=== PATIENT | male | born 1980 | race Caucasian/White ===

== ENCOUNTER 2018-03-01 11:29 | Emergency (ER) | payer OTHER, MEDICAID, SELFPAY ==
[2018-03-01 11:30] VITALS: BP 144/86; PULSE 63; RESP 14; TEMP 36.1; O2SAT 100; BMI 32.5
--- NOTE | 2018-03-01 12:18 | ED.MALEGU ---
HPI - Male Genitourinary <LORI Nix - Last Filed: 03/01/18 15:02> General Chief complaint: Urogenital-Male Stated complaint: blood in urine Time Seen by Provider: 03/01/18 12:05 Source: patient and family Mode of arrival: ambulatory Limitations: no limitations History of Present Illness HPI Narrative: Patient is a healthy 37-year-old male who presents with chief complaint of left-sided flank pain radiating down to his inguinal area on the left side as well as hematuria last night. States that hematuria was a few drops of red blood. He states that the Flank pain comes in waves with a max of 5/10. He denies any other abdominal pain, fever, nausea vomiting or diarrhea. He denies any penile discharge. Denies any sexually transmitted infection risk and declines STD testing. He does complain of a left testicle ache but denies swelling or severe pain. He states his left testicle ache is 2 to 3/10. He complains of dysuria, but denies any frequency or urgency. he states last night he had to push to urinate and then he was able to urinate and then had a few drops of blood. Related Data Home Medications Medication Instructions Recorded Confirmed albuterol sulfate [ProAir HFA] 1 puff INHALATION PRN PRN 03/01/18 03/01/18 clonidine HCl 1 tab PO BEDTIME 03/01/18 03/01/18 lisinopril 10 mg PO DAILY 03/01/18 03/01/18 Allergies Allergy/AdvReac Type Severity Reaction Status Date / Time No Known Drug Allergies Allergy Verified 03/01/18 11:50 Review of Systems <LORI Nix - Last Filed: 03/01/18 15:02> Review of Systems GENERAL: Denies chills, fatigue, malaise, fever, sweats. HEENT: Denies sinus pain, ear pain, sore throat, difficulty swallowing, dizziness. RESPIRATORY: Denies dyspnea, cough, wheezing, hemoptysis, sputum. CARDIOVASCULAR: Denies chest pain, palpitations, orthopnea, edema, GASTROINTESTINAL: Denies nausea, vomiting, abdominal pain, diarrhea, constipation, melena. : See HPI MUSCULOSKELETAL: denies weakness, joint pain, or bony pain SKIN: Denies rash, skin lesions, or other NEUROLOGIC: Denies weakness, headache, numbness, change in speech, confusion, seizures, incoordination. PSYCHIATRIC: No concerning psychosocial issues. 12 point review of systems is negative except for those stated above Exam <SARAH NixBC - Last Filed: 03/01/18 15:02> Narrative Exam Narrative: GENERAL: This is a well-nourished, well-developed patient, appears uncomfortable HEAD: Atraumatic. Normocephalic. No temporal or scalp tenderness. EYES: Pupils equal round and reactive. Extraocular motions intact. No scleral icterus. No injection or drainage. ENT: Nose without bleeding, purulent drainage or septal hematoma. Throat without erythema, tonsillar hypertrophy or exudate. Uvula midline. Airway patent. NECK: Trachea midline. No JVD or lymphadenopathy. Supple, nontender, no meningeal signs. CARDIOVASCULAR: Regular rate and rhythm without murmurs, gallops, or rubs. : RESPIRATORY: Clear to auscultation. Breath sounds equal bilaterally. No wheezes, rales, or rhonchi. No cough on exam. No increased respiratory effort. GASTROINTESTINAL: Abdomen soft, diffuse tenderness left lower quadrant, nondistended. No hepato-splenomegaly, or palpable masses. No guarding. CVA tenderness left side. Active bowel sounds all 4 quadrants. EXTREMITIES: No clubbing, cyanosis, or edema. No joint tenderness, effusion, or edema noted. BACK: Nontender without deformity or crepitance. No flank tenderness. NEURO: AOx3. SKIN: No rash or erythema. : No palpable hernias. Cremasteric reflexes intact bilaterally. No pain to palpation of testicles. No obvious rashes, lacerations, erythema or abrasions. No swelling of testicles noted. 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 Initial Vital Signs Initial Vital Signs: Vital Signs Temperature 97.0 F L 03/01/18 11:30 Pulse Rate 63 03/01/18 11:30 Respiratory Rate 14 03/01/18 11:30 Blood Pressure 144/86 H 03/01/18 11:30 Pulse Oximetry 100 03/01/18 11:30 <Lexa Hemphill MD - Last Filed: 03/01/18 18:27> Initial Vital Signs Initial Vital Signs: Vital Signs Temperature 97.0 F L 03/01/18 11:30 Pulse Rate 63 03/01/18 11:30 Respiratory Rate 14 03/01/18 11:30 Blood Pressure 144/86 H 03/01/18 11:30 Pulse Oximetry 100 03/01/18 11:30 Course <LORI Nix - Last Filed: 03/01/18 15:02> Course Narrative: I checked on the patient several times throughout his stay in the emergency department. Orders Ordered: ED Orders 03/01/18 12:22 CT kidney ureter bladder (KUB) Stat Discontinued Medications Ketorolac Tromethamine (Toradol) 60 mg IM NOW ONE Stop: 03/01/18 13:54 Last Admin: 03/01/18 13:57 Dose: 60 mg Vital Signs - 8 hr 03/01/18 11:30 03/01/18 12:30 03/01/18 13:38 Temperature 97.0 F L Pulse Rate 63 58 L Respiratory Rate 14 14 Blood Pressure 144/86 H Blood Pressure [Right Arm] 125/72 129/77 Pulse Oximetry 100 99 <Lexa Hemphill MD - Last Filed: 03/01/18 18:27> Orders Ordered: ED Orders 03/01/18 12:22 CT kidney ureter bladder (KUB) Stat Discontinued Medications Ketorolac Tromethamine (Toradol) 60 mg IM NOW ONE Stop: 03/01/18 13:54 Last Admin: 03/01/18 13:57 Dose: 60 mg Vital Signs - 8 hr 03/01/18 11:30 03/01/18 12:30 03/01/18 13:38 Temperature 97.0 F L Pulse Rate 63 58 L Respiratory Rate 14 14 Blood Pressure 144/86 H Blood Pressure [Right Arm] 125/72 129/77 Pulse Oximetry 100 99 MDM - Male Genitourinary <LORI Nix - Last Filed: 03/01/18 15:02> Lab Data Urine Dip Bedside Urine Glucose Negative Bedside Urine Bilirubin - Negative Bedside Urine Ketone - Negative Urine Specific [place] 1.025 Bedside Urine Occult Blood - Negative Bedside Urine pH 6.0 Bedside Urine Protein - Negative Bedside Urine Urobilinogen - Negative Bedside Urine Nitrite - Negative Bedside Urine Leukocytes - Negative Esterase Imaging Data CT scan - abdomen: Radiologist's impression: [address] [address] [address] Scan Report Signed Patient: Iban Orourke#: [id number] : 1980Acct:[id number] Age/Sex: 37 / MDate of Service: 03/01/18 Loc: ED Accession Number: [id number] Procedure: CT kidney ureter bladder (KUB) Ordering Provider: Yanni Rodríguez CIVIL CELEBRANT- PROCEDURE: CT KIDNEY URETER BLADDER (KUB) INDICATIONS: left flank pain, blood in urine TECHNIQUE: Noncontrast 5 mm thick sections acquired from the diaphragms to the symphysis. 5 mm thick coronal and sagittal reformats were then performed. For radiation dose reduction, the following was used: automated exposure control, adjustment of mA and/or kV according to patient size. COMPARISON: None. FINDINGS: Image quality: Excellent. Lung bases: Lung bases are clear. Heart size is normal. Urinary system: Both kidneys are normal in size. No kidney stones. No hydronephrosis or perinephric fat stranding. Both ureters appear non-dilated throughout their expected courses. Bladder wall thickness is normal; no calcified bladder stones. Other solid organs: Liver is normal in size. Gallbladder is within normal limits. Pancreas is normal in contours. Spleen is normal in size. No adrenal nodules. Peritoneum and bowel: Unenhanced bowel loops demonstrate normal wall thickness and caliber. Few scattered diverticuli noted in the colon without evidence of diverticulitis. No free air. Trace free fluid in the lower pelvis of uncertain etiology. The appendix is normal. Nodes and vessels: No retroperitoneal or mesenteric adenopathy by size criteria. Aorta and inferior vena cava are normal in caliber. Abdominal wall: No ventral hernias. Pelvis: No free pelvic fluid. No inguinal hernias or adenopathy. Bones: No suspicious bony lesions. No vertebral body compression fractures. 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 IMPRESSION: 1. No renal stone or hydronephrosis. 2. Trace free fluid in the lower pelvis of uncertain etiology. 3. Colonic diverticulosis without evidence of diverticulitis. 4. Trace L5-S1 isthmic spondylolisthesis. Dictated by: Dominga Reid MD, PhD on 03/01/2018 at 12:07 Approved by: Dominga Reid MD, PhD on 03/01/2018 at 12:12 [facility] Narrative Medical decision making narrative: Patient presents with flank pain and concern about a kidney stone. He states he thinks he passed one last night. He has stable vital signs, appears well and nontoxic and has a overall benign exam. I discussed at length return precautions of fever, severe abdominal pain. Discussed further workup including labs, scrotal ultrasound but patient and are okay to discharge at this point time and Come back if necessary. I discussed at length negative urinalysis, no kidney stone on scan an incidental trace free-fluid finding. Discussed at length return precautions of fever, severe abdominal pain or acute concerns. No questions or concerns upon discharge. <Lexa Hemphill MD - Last Filed: 03/01/18 18:27> Lab Data Urine Dip Bedside Urine Glucose Negative Bedside Urine Bilirubin - Negative Bedside Urine Ketone - Negative Urine Specific Marion 1.025 Bedside Urine Occult Blood - Negative Bedside Urine pH 6.0 Bedside Urine Protein - Negative Bedside Urine Urobilinogen - Negative Bedside Urine Nitrite - Negative Bedside Urine Leukocytes - Negative Esterase Discharge Plan Departure Patient Disposition: Home Clinical Impression: Acute left flank pain Discharge Date/Time: 03/01/18 14:58 Interventions: ED Discharge Assessment Last Done: 03/01/18 14:20 Instructions: DI for Flank Pain Activity Restrictions/Additional Instructions: Your urine has no signs of infection. Your CT scan shows no sign of kidney stone. Please come back to emergency department if any severe fever, severe pain or any acute concerns. Please do not take ibuprofen for 6-8 hours after that Toradol injection. Please follow-up with your primary care provider. Prescriptions: No Action clonidine HCl 0.3 mg tablet 1 tab PO BEDTIME RF: 0 lisinopril 10 mg tablet 10 mg PO DAILY RF: 0 albuterol sulfate [ProAir HFA] 90 mcg/actuation HFA aerosol inhaler 1 puff Inhalation PRN PRN (Reason: Shortness Of Breath) RF: 0 <Lexa Hemphill MD - Last Filed: 03/01/18 18:27> Cosign ED Attending Cosignature Attestation: I was present in the ER at the time of this patient's care. I was available for verbal consultation or to see the patient directly if requested. I agree with the assessment and treatment plan.
--- NOTE | 2018-03-01 12:21 | ED_ITS ---
HPI - Male Genitourinary <LORI Nix - Last Filed: 03/01/18 15:02> General Chief complaint: Urogenital-Male Stated complaint: blood in urine Time Seen by Provider: 03/01/18 12:05 Source: patient and family Mode of arrival: ambulatory Limitations: no limitations History of Present Illness HPI Narrative: Patient is a healthy 37-year-old male who presents with chief complaint of left-sided flank pain radiating down to his inguinal area on the left side as well as hematuria last night. States that hematuria was a few drops of red blood. He states that the Flank pain comes in waves with a max of 5/10. He denies any other abdominal pain, fever, nausea vomiting or diarrhea. He denies any penile discharge. Denies any sexually transmitted infection risk and declines STD testing. He does complain of a left testicle ache but denies swelling or severe pain. He states his left testicle ache is 2 to 3/10. He complains of dysuria, but denies any frequency or urgency. he states last night he had to push to urinate and then he was able to urinate and then had a few drops of blood. Related Data Home Medications Medication Instructions Recorded Confirmed albuterol sulfate [ProAir HFA] 1 puff INHALATION PRN PRN 03/01/18 03/01/18 clonidine HCl 1 tab PO BEDTIME 03/01/18 03/01/18 lisinopril 10 mg PO DAILY 03/01/18 03/01/18 Allergies Allergy/AdvReac Type Severity Reaction Status Date / Time No Known Drug Allergies Allergy Verified 03/01/18 11:50 Review of Systems <LORI Nix - Last Filed: 03/01/18 15:02> Review of Systems GENERAL: Denies chills, fatigue, malaise, fever, sweats. HEENT: Denies sinus pain, ear pain, sore throat, difficulty swallowing, dizziness. RESPIRATORY: Denies dyspnea, cough, wheezing, hemoptysis, sputum. CARDIOVASCULAR: Denies chest pain, palpitations, orthopnea, edema, GASTROINTESTINAL: Denies nausea, vomiting, abdominal pain, diarrhea, constipation, melena. : See HPI MUSCULOSKELETAL: denies weakness, joint pain, or bony pain SKIN: Denies rash, skin lesions, or other NEUROLOGIC: Denies weakness, headache, numbness, change in speech, confusion, seizures, incoordination. PSYCHIATRIC: No concerning psychosocial issues. 12 point review of systems is negative except for those stated above Exam <SARAH NixBC - Last Filed: 03/01/18 15:02> Narrative Exam Narrative: GENERAL: This is a well-nourished, well-developed patient, appears uncomfortable HEAD: Atraumatic. Normocephalic. No temporal or scalp tenderness. EYES: Pupils equal round and reactive. Extraocular motions intact. No scleral icterus. No injection or drainage. ENT: Nose without bleeding, purulent drainage or septal hematoma. Throat without erythema, tonsillar hypertrophy or exudate. Uvula midline. Airway patent. NECK: Trachea midline. No JVD or lymphadenopathy. Supple, nontender, no meningeal signs. CARDIOVASCULAR: Regular rate and rhythm without murmurs, gallops, or rubs. : RESPIRATORY: Clear to auscultation. Breath sounds equal bilaterally. No wheezes , rales, or rhonchi. No cough on exam. No increased respiratory effort. GASTROINTESTINAL: Abdomen soft, diffuse tenderness left lower quadrant, nondistended. No hepato-splenomegaly, or palpable masses. No guarding. CVA tenderness left side. Active bowel sounds all 4 quadrants. EXTREMITIES: No clubbing, cyanosis, or edema. No joint tenderness, effusion, or edema noted. BACK: Nontender without deformity or crepitance. No flank tenderness. NEURO: AOx3. SKIN: No rash or erythema. : No palpable hernias. Cremasteric reflexes intact bilaterally. No pain to palpation of testicles. No obvious rashes, lacerations, erythema or abrasions. No swelling of testicles noted. 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 Initial Vital Signs Initial Vital Signs: Vital Signs Temperature 97.0 F L 03/01/18 11:30 Pulse Rate 63 03/01/18 11:30 Respiratory Rate 14 03/01/18 11:30 Blood Pressure 144/86 H 03/01/18 11:30 Pulse Oximetry 100 03/01/18 11:30 <Lexa Hemphill MD - Last Filed: 03/01/18 18:27> Initial Vital Signs Initial Vital Signs: Vital Signs Temperature 97.0 F L 03/01/18 11:30 Pulse Rate 63 03/01/18 11:30 Respiratory Rate 14 03/01/18 11:30 Blood Pressure 144/86 H 03/01/18 11:30 Pulse Oximetry 100 03/01/18 11:30 Course <LORI Nix - Last Filed: 03/01/18 15:02> Course Narrative: I checked on the patient several times throughout his stay in the emergency department. Orders Ordered: ED Orders 03/01/18 12:22 CT kidney ureter bladder (KUB) Stat Discontinued Medications Ketorolac Tromethamine (Toradol) 60 mg IM NOW ONE Stop: 03/01/18 13:54 Last Admin: 03/01/18 13:57 Dose: 60 mg Vital Signs - 8 hr 03/01/18 11:30 03/01/18 12:30 03/01/18 13:38 Temperature 97.0 F L Pulse Rate 63 58 L Respiratory Rate 14 14 Blood Pressure 144/86 H Blood Pressure [Right Arm] 125/72 129/77 Pulse Oximetry 100 99 <Lexa Hemphill MD - Last Filed: 03/01/18 18:27> Orders Ordered: ED Orders 03/01/18 12:22 CT kidney ureter bladder (KUB) Stat Discontinued Medications Ketorolac Tromethamine (Toradol) 60 mg IM NOW ONE Stop: 03/01/18 13:54 Last Admin: 03/01/18 13:57 Dose: 60 mg Vital Signs - 8 hr 03/01/18 11:30 03/01/18 12:30 03/01/18 13:38 Temperature 97.0 F L Pulse Rate 63 58 L Respiratory Rate 14 14 Blood Pressure 144/86 H Blood Pressure [Right Arm] 125/72 129/77 Pulse Oximetry 100 99 MDM - Male Genitourinary <LORI Nix - Last Filed: 03/01/18 15:02> Lab Data Urine Dip Bedside Urine Glucose Negative Bedside Urine Bilirubin - Negative Bedside Urine Ketone - Negative Urine Specific [place] 1.025 Bedside Urine Occult Blood - Negative Bedside Urine pH 6.0 Bedside Urine Protein - Negative Bedside Urine Urobilinogen - Negative Bedside Urine Nitrite - Negative Bedside Urine Leukocytes - Negative Esterase Imaging Data CT scan - abdomen: Radiologist's impression: [address] [address] [address] Scan Report Signed Patient: Iban Orourke#: [id number] : 1980Acct:[id number] Age/Sex: 37 / MDate of Service: 03/01/18 Loc: ED Accession Number: [id number] Procedure: CT kidney ureter bladder (KUB) Ordering Provider: Yanni Rodríguez BOOK EDITOR- PROCEDURE: CT KIDNEY URETER BLADDER (KUB) INDICATIONS: left flank pain, blood in urine TECHNIQUE: Noncontrast 5 mm thick sections acquired from the diaphragms to the symphysis. 5 mm thick coronal and sagittal reformats were then performed. For radiation dose reduction, the following was used: automated exposure control, adjustment of mA and/or kV according to patient size. COMPARISON: None. FINDINGS: Image quality: Excellent. Lung bases: Lung bases are clear. Heart size is normal. Urinary system: Both kidneys are normal in size. No kidney stones. No hydronephrosis or perinephric fat stranding. Both ureters appear non-dilated throughout their expected courses. Bladder wall thickness is normal; no calcified bladder stones. Other solid organs: Liver is normal in size. Gallbladder is within normal limits. Pancreas is normal in contours. Spleen is normal in size. No adrenal nodules. Peritoneum and bowel: Unenhanced bowel loops demonstrate normal wall thickness and caliber. Few scattered diverticuli noted in the colon without evidence of diverticulitis. No free air. Trace free fluid in the lower pelvis of uncertain etiology. The appendix is normal. Nodes and vessels: No retroperitoneal or mesenteric adenopathy by size criteria. Aorta and inferior vena cava are normal in caliber. Abdominal wall: No ventral hernias. Pelvis: No free pelvic fluid. No inguinal hernias or adenopathy. Bones: No suspicious bony lesions. No vertebral body compression fractures. 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 IMPRESSION: 1. No renal stone or hydronephrosis. 2. Trace free fluid in the lower pelvis of uncertain etiology. 3. Colonic diverticulosis without evidence of diverticulitis. 4. Trace L5-S1 isthmic spondylolisthesis. Dictated by: Dominga Reid MD, PhD on 03/01/2018 at 12:07 Approved by: Dominga Reid MD, PhD on 03/01/2018 at 12:12 [facility] Narrative Medical decision making narrative: Patient presents with flank pain and concern about a kidney stone. He states he thinks he passed one last night. He has stable vital signs, appears well and nontoxic and has a overall benign exam. I discussed at length return precautions of fever, severe abdominal pain. Discussed further workup including labs, scrotal ultrasound but patient and are okay to discharge at this point time and Come back if necessary. I discussed at length negative urinalysis, no kidney stone on scan an incidental trace free-fluid finding. Discussed at length return precautions of fever, severe abdominal pain or acute concerns. No questions or concerns upon discharge. <Lexa Hemphill MD - Last Filed: 03/01/18 18:27> Lab Data Urine Dip Bedside Urine Glucose Negative Bedside Urine Bilirubin - Negative Bedside Urine Ketone - Negative Urine Specific [place] 1.025 Bedside Urine Occult Blood - Negative Bedside Urine pH 6.0 Bedside Urine Protein - Negative Bedside Urine Urobilinogen - Negative Bedside Urine Nitrite - Negative Bedside Urine Leukocytes - Negative Esterase Discharge Plan Departure Patient Disposition: Home Clinical Impression: Acute left flank pain Discharge Date/Time: 03/01/18 14:58 Interventions: ED Discharge Assessment Last Done: 03/01/18 14:20 Instructions: DI for Flank Pain Activity Restrictions/Additional Instructions: Your urine has no signs of infection. Your CT scan shows no sign of kidney stone. Please come back to emergency department if any severe fever, severe pain or any acute concerns. Please do not take ibuprofen for 6-8 hours after that Toradol injection. Please follow-up with your primary care provider. Prescriptions: No Action clonidine HCl 0.3 mg tablet 1 tab PO BEDTIME RF: 0 lisinopril 10 mg tablet 10 mg PO DAILY RF: 0 albuterol sulfate [ProAir HFA] 90 mcg/actuation HFA aerosol inhaler 1 puff Inhalation PRN PRN (Reason: Shortness Of Breath) RF: 0 <Lexa Hemphill MD - Last Filed: 03/01/18 18:27> Cosign ED Attending Cosignature Attestation: I was present in the ER at the time of this patient's care. I was available for verbal consultation or to see the patient directly if requested. I agree with the assessment and treatment plan.
[2018-03-01 12:30] VITALS: BP 125/72
[2018-03-01 13:38] VITALS: BP 129/77; PULSE 58; RESP 14; O2SAT 99
[2018-03-01] MEDS: KETOROLAC 60 MG/2 ML VIAL IM (13:57)
== END 2018-03-01 14:58 | disposition home or self-care (01) ==
PROVIDERS: Emergency Provider Nurse Practitioner Family
DX: R10.9 Unspecified abdominal pain (principal)
CPT/HCPCS: 74176; 81003; 96372; 99282; 99284; J1885

== ENCOUNTER 2018-03-03 07:34 | Emergency (ER) | payer OTHER, MEDICAID, SELFPAY ==
[2018-03-03 07:41] VITALS: BP 135/77; PULSE 71; RESP 18; TEMP 36.8; O2SAT 100; BMI 33.6
[2018-03-03 08:14] LABS: Bacteria Urine None Seen; WBC Urine None Seen (0-5/HPF)
[2018-03-03 08:20] LABS: Culture Indicated Urine Cult Not Indicated; RBC Urine 10-30/HPF (0-5/HPF)
--- NOTE | 2018-03-03 08:20 | DI.US.S_ITS ---
PROCEDURE: US RENAL COMPLETE INDICATIONS: hematuria, R flank pain TECHNIQUE: Real-time scanning was performed of the kidneys and bladder, with image documentation. COMPARISON: [facility], CT, CT KIDNEY URETER BLADDER (KUB), 03/01/2018, 12:32. FINDINGS: Kidneys: Kidneys are normal in size. Right kidney measures 12.5 cm long; left kidney measures 14.4 cm long. Right renal cortical thickness is 2.0 cm; left renal cortical thickness is 1.5 cm. Renal cortical echotexture is normal. No hydronephrosis or nephrolithiasis. No suspicious solid mass lesions. Bladder: Pre-void bladder volume is 112 mL. Post-void residual is 0 mL. Pre-void images demonstrate no intraluminal masses or stones. On pre-void images, bilateral ureteral jets are noted with color Doppler interrogation. (Of note, ureteral jets may not be detectable in up to 25% of cases due to insufficient differences in specific gravity between ureteral and bladder urine). Miscellaneous: No free pelvic fluid. IMPRESSION: No hydronephrosis or nephrolithiasis found. Source of hematuria is not identified. Normal bladder function. Dictated by: Fidel Agrawal M.D. on 03/03/2018 at 10:10 Approved by: Fidel Agrawal M.D. on 03/03/2018 at 10:12
--- NOTE | 2018-03-03 08:32 | ED_ITS ---
HPI - Male Genitourinary General Chief complaint: Urogenital-Male Stated complaint: blood in urine Time Seen by Provider: 03/03/18 07:36 Source: patient and family Mode of arrival: ambulatory Limitations: no limitations History of Present Illness HPI Narrative: 37-year-old nonsmoking male presents with a chief complaint of ongoing hematuria for the past few days. He was seen a few days ago for R flank pain and radiation to his R groin. He had a negative CT KUB and was discharged with diagnosis of a likely passed kidney stone. He was unable to follow up and returns here because he has ongoing bleeding. He denies any injury. He has some pain very low in his pelvis. He denies taking any blood thinners. He denies dysuria, frequency, urgency. Onset (ago): day(s) Duration: intermittent Severity: mild Quality: aching Relieving factors: none Exacerbating factors: none Reports denies other symptoms Related Data Home Medications Medication Instructions Recorded Confirmed albuterol sulfate [ProAir HFA] 1 puff INHALATION PRN PRN 03/01/18 03/01/18 clonidine HCl 1 tab PO BEDTIME 03/01/18 03/01/18 lisinopril 10 mg PO DAILY 03/01/18 03/01/18 Allergies Allergy/AdvReac Type Severity Reaction Status Date / Time No Known Drug Allergies Allergy Verified 03/01/18 11:50 Review of Systems Review of Systems All systems reviewed & are unremarkable except as noted in HPI and below Constitutional Denies chills, Denies fever(s), Denies lethargy and Denies weakness Eyes Denies change in vision, Denies eye discharge, Denies irritation and Denies loss of vision Cardiovascular Denies chest pain, Denies irregular heart rhythm, Denies lightheadedness, Denies palpitations and Denies orthopnea Gastrointestinal Gastrointestinal: Denies abdominal pain, Denies change in bowel habits, Denies diarrhea, Denies nausea and Denies vomiting Genitourinary Reports hematuria, Denies flank pain, Denies urinary incontinence and Denies urinary urgency Comments: suprapubic tenderness Musculoskeletal Denies back pain, Denies muscle weakness, Denies numbness and Denies tingling Integumentary/Breasts Denies pruritus, Denies erythema, Denies rash and Denies wounds Neurologic Denies loss of vision, Denies numbness, Denies tingling and Denies weakness Endocrine Denies palpitations PFSH Social History Smoking Status: Current some day smoker Exam Narrative Exam Narrative: GEN: AOx3 and in mild distress EYES: Pupils are equal, round, and reactive to light and accommodation. Extraoccular muscles are intact bilaterally. There is no subconjunctival hemorrhage or exudate. CHEST: Lungs are clear to auscultation bilaterally and free of wheezes, rales, or rhonchi. Heart rate is regular rhythm, there are no murmurs, clicks, rubs, or gallops. There is no chest wall tenderness. ABD: Abdomen is soft and mild tenderness low in pelvis. There is no guarding or rebound. Bowel sounds are normal in all 4 quadrants. There is no mass or organomegaly. EXT: Full painless ROM of all extremities with no loss of sensation or strength. SKIN: Warm, pink, and dry. No erythema or rash Initial Vital Signs Initial Vital Signs: Vital Signs Temperature 98.2 F 03/03/18 07:41 Pulse Rate 71 03/03/18 07:41 Respiratory Rate 18 03/03/18 07:41 Blood Pressure 135/77 03/03/18 07:41 Pulse Oximetry 100 03/03/18 07:41 Course Orders Ordered: ED Orders 03/03/18 08:05 Urine Microscopic Stat 03/03/18 08:20 US renal complete Stat 03/03/18 08:59 Basic Metabolic Panel Stat Complete Blood Count AUTO DIFF Stat Consultations Consultation #1: I've discussed the case with Dr. Acuña whom is happy to see the patient in follow up Vital Signs - 8 hr 03/03/18 07:41 03/03/18 10:00 Temperature 98.2 F Pulse Rate 71 60 Respiratory Rate 18 20 Blood Pressure 135/77 128/77 Pulse Oximetry 100 100 MDM - Male Genitourinary Differential Diagnosis Likely urinary tract infection, urethritis, epididymitis, prostatitis, acute retention of urine and inguinal hernia Medical Records Attestation: I reviewed the patient's medical records. Lab Data Result diagrams: 03/03/18 08:59 03/03/18 08:59 Lab Results 03/03/18 03/03/18 03/03/18 Range/Units 08:05 08:59 08:59 WBC 6.2 (4.5-11.0) X10^3/uL RBC 4.72 (4.5-5.9) X10^6/uL Hgb 14.3 (13.5-17.5) g/dL Hct 42.0 (41-53) % MCV 88.9 (80-100) fL MCH 30.4 (26-34) PG MCHC 34.2 (30-36) % RDW 12.8 (11.6-14.8) % Plt Count 202 (150-400) X10^3/uL Neut % (Auto) 64.5 (50-75) % Lymph % (Auto) 24.6 L (25-40) % [place] % (Auto) 7.9 (3-14) % Eos % (Auto) 2.2 (2-4) % Baso % (Auto) 0.8 (0-2) % Neut # (Auto) 4000 (8013-3022) /uL Sodium 144 (137-145) mmol/L Potassium 4.2 (3.4-5.1) mmol/L Chloride 106 (98-107) mmol/L Carbon Dioxide 27 (22-32) mmol/L BUN 15 (9-20) mg/dL Creatinine 0.80 (0.66-1.25) mg/dL Estimated GFR > 60.0 (>60) mL/min BUN/Creatinine Ratio 18.8 (6-22) Glucose 102 H (70-100) mg/dL Calcium 8.9 (8.4-10.2) mg/dL Urine RBC 10-30/hpf H (0-5/HPF) Urine WBC None seen (0-5/HPF) Urine Bacteria None seen (None) Ur Culture Indicated? Cult not indicated Micro UA Comment Not Reportable Urine Dip Bedside Urine Glucose Negative Bedside Urine Bilirubin - Negative Bedside Urine Ketone - Negative Urine Specific [place] 1.030 Bedside Urine Occult Blood + Bedside Urine pH 6.0 Bedside Urine Protein - Negative Bedside Urine Urobilinogen - Negative Bedside Urine Nitrite - Negative Bedside Urine Leukocytes - Negative Esterase MDM Narrative Medical decision making narrative: 37-year-old otherwise healthy male presents with his 2nd visit for hematuria. First visit sounded very suspicious for a passed kidney stone but patient continues to pass blood, rather painlessly. Ultrasound shows no abnormality lab work is normal and urine with suggests no active infection. The patient is in no extremities sent it is reasonable to discharge and encouraged urologic follow-up Discharge Plan Departure Patient Disposition: Home Clinical Impression: Hematuria Discharge Date/Time: 03/03/18 10:00 Interventions: ED Discharge Assessment Last Done: 03/03/18 10:00 Instructions: DI for Hematuria Activity Restrictions/Additional Instructions: *You have been diagnosed with [painless hematuria ] *What to do: *Follow up with Urology at [facility], call for an appointment. Let them know you were seen in the Emergency Department and that we ask that you be seen in follow up *Return to ER if you should have any new, worsening or concerning symptoms , such as [ increasing pain, the passage of large amounts of blood in the urine , fever over 101 F, or other] Prescriptions: No Action clonidine HCl 0.3 mg tablet 1 tab PO BEDTIME RF: 0 lisinopril 10 mg tablet 10 mg PO DAILY RF: 0 albuterol sulfate [ProAir HFA] 90 mcg/actuation HFA aerosol inhaler 1 puff Inhalation PRN PRN (Reason: Shortness Of Breath) RF: 0 Referrals: Archana Acuña MD [Physician] -
[2018-03-03 09:07] LABS: Add Manual Diff / Slide Review NO; Basophils Percent Auto 0.8 % (0-2); Eosinophils Percent Auto 2.2 % (2-4); Hemoglobin 14.3 g/dL (13.5-17.5); Lymphocytes Percent Auto 24.6 % (25-40); Mean Corpuscular HGB Conc 34.2 % (30-36); Mean Corpuscular Hemoglobin 30.4 PG (26-34); Mean Corpuscular Volume 88.9 fL (80-100); Monocytes Percent Auto 7.9 % (3-14); Neutrophils Absolute Auto 4000 /uL (3000-5900); Neutrophils Percent Auto 64.5 % (50-75); Platelet Count 202 X10^3/uL (150-400); Red Blood Cell Count 4.72 X10^6/uL (4.5-5.9); Red Cell Distribution Width 12.8 % (11.6-14.8); White Blood Cell Count 6.2 X10^3/uL (4.5-11.0)
[2018-03-03 09:16] LABS: BUN Creatinine Ratio 18.8 (6-22); Blood Urea Nitrogen 15 mg/dL (9-20); Calcium 8.9 mg/dL (8.4-10.2); Carbon Dioxide 27 mmol/L (22-32); Chloride 106 mmol/L (98-107); Estimated Glomerular Filt Rate > 60.0 mL/min (>60); Glucose 102 mg/dL (70-100); HEMOLYSIS < 15 (0-50); Potassium 4.2 mmol/L (3.4-5.1); Sodium 144 mmol/L (137-145)
[2018-03-03 10:00] VITALS: BP 128/77; PULSE 60; RESP 20; O2SAT 100
== END 2018-03-03 10:00 | disposition home or self-care (01) ==
PROVIDERS: Emergency Provider Emergency Medicine
DX: R31.9 Hematuria, unspecified (principal)
CPT/HCPCS: 36415; 51798; 76770; 80048; 81003; 81015; 85025; 99283; 99284

== ENCOUNTER → 2018-03-29 09:53 | Outpatient (CLI) | payer OTHER, MEDICAID, SELFPAY ==
--- NOTE | 2018-03-29 | DI.CT.S_ITS ---
PROCEDURE: CT ABDOMEN PELVIS WO/W CON INDICATIONS: HEMATURIA TECHNIQUE: Optional 5 mm thick noncontrast images acquired from the diaphragm to the symphysis pubis. After the administration of intravenous contrast, 5 mm thick images acquired from the diaphragm to the symphysis pubis after a 10-minute delay. 2 mm thick coronal and sagittal reformats were then performed of the kidneys and ureters. For radiation dose reduction, the following was used: automated exposure control, adjustment of mA and/or kV according to patient size. COMPARISON: None. FINDINGS: Image quality: Excellent. Lung bases: Lung bases are clear. Heart size is normal. Urinary system: Both kidneys are normal in size, without hydronephrosis or nephrolithiasis on pre-contrast images. No perinephric fat stranding. There is normal bilateral renal enhancement. Renal calyces appear normal in morphology when filled with contrast. Opacified portions of both ureters demonstrate normal caliber. Bladder wall thickness is normal. No calcified bladder stones. Other solid organs: Liver is normal in size and enhancement. Gallbladder negative. Biliary system is non dilated. Pancreas enhances normally. Spleen is normal in size and enhancement. No adrenal nodules. Peritoneum and bowel: Bowel loops demonstrate normal wall thickness and caliber. No free fluid or air. Normal appendix Nodes and vessels: No retroperitoneal or mesenteric adenopathy by size criteria. Aorta and inferior vena cava are normal in size. Abdominal wall: No ventral hernias. Pelvis: No pathologic free pelvic fluid. No inguinal hernias or adenopathy. Bones: No suspicious bony lesions. No vertebral body compression fractures. IMPRESSION: Grossly unremarkable examination. No urolithiasis. No evidence of urinary obstruction. Dictated by: Jony Ramirez M.D. on 03/29/2018 at 11:28 Approved by: Jony Ramirez M.D. on 03/29/2018 at 11:51
== END ==
PROVIDERS: Visit Provider Urology
DX: R31.9 Hematuria, unspecified (principal)
CPT/HCPCS: 74178; Q9967